=== PATIENT | female | born 1985 | race Caucasian/White ===

== ENCOUNTER → 2016-12-19 | Outpatient (CLI) | payer MEDICAID ==
--- NOTE | 2016-12-19 09:29 | RAD ---
Exam performed: Left breast ultrasound. History: Palpable lump in the left breast. Date of service: 12/19/16. Comparison: None available Discussion: Targeted sonographic evaluation of the left breast is performed in the area of concern. There is a large cyst at 3:00 position measuring 1.2 x 1.4 x 1.1 cm. There is a 0.8 x 0.9 x 0.8 cm cyst at 4:00 position. Contrast from cyst is seen at 3 to 4:00 position, 9 cm from the nipple. These correspond to the area of palpable concern. No suspicious finding is identified. Impression: Several cysts as outlined above correspond to the area of palpable concern. Patient may be followed up clinically. Patient may return at age 34 for baseline mammogram. BI-RADS 2. Benign findings
--- NOTE | 2016-12-19 10:13 | KCIC ---
PROCEDURE Pelvic sonogram. HISTORY Left lower quadrant pain. TECHNIQUE Trans abdominal and transvaginal sonographic imaging of the pelvis was performed. COMPARISON None. FINDINGS The uterus measures 9.4 x 6.6 x 4.6 cm. The endometrium measures 4.6 mm in thickness. The right ovary is surgically absent. The left ovary measures 4.0 x 2.2 x 1.4 cm and demonstrates normal blood flow. There is a 2.1 cm dominant left ovarian follicle/follicular cyst. There are nabothian cysts within the cervix. There is no pelvic free fluid. IMPRESSION 1. 2.1 cm dominant left ovarian follicle/follicular cyst. 2. Surgically absent right ovary. 3. Nabothian cysts within the cervix. Electronically signed by: Sheri Starr (Dec 19, 2016 10:12:42)
== END | disposition home or self-care (01) ==
LOC: KCIC US 07:52
PROVIDERS: ATTEND Obstetrics & Gynecology
DX: N63 Unspecified lump in breast (principal); R10.32 Left lower quadrant pain; N83.02 Follicular cyst of left ovary; N88.8 Other specified noninflammatory disorders of cervix uteri; Z90.721 Acquired absence of ovaries, unilateral
CPT/HCPCS: 76641; 76830; 76856

== ENCOUNTER 2021-03-01 15:35 | Emergency (ER) | payer MEDICAID ==
[~2021-03-01] VITALS: Ht 172.7 cm; Wt 145.0 kg
[2021-03-01] MEDS: IV NORMAL SALINE 1000ML BAG 1,000 ML IV ONE (18:23)
[2021-03-01] MEDS: diphenhydrAMINE 50 MG/ML VIAL IVP ONE (18:25)
[2021-03-01] MEDS: PROCHLORPERAZINE 10 MG/2 ML VIAL. IV ONE (18:26)
[2021-03-01] MEDS: DEXAMETHASONE SOD PHOS 20 MG/5 ML VIAL. IV ONE (18:30)
--- NOTE | 2021-03-01 18:31 | RAD ---
CT HEAD INDICATION: Reason: MIGRAINE, WORST HEADACHE X 1 WEEK / Spl. Instructions: / History: COMPARISON: None Available. Exposure: One or more of the following individualized dose reduction techniques were utilized for thi s examination: 1. Automated exposure control 2. Adjustment of the mA and/or kV according to patient size 3. Use of iterative reconstruction technique TECHNIQUE: 5 mm contiguous axial images were obtained from the skull base to the vertex in both bone and soft tissue algorithm. FINDINGS: No abnormal attenuation within the brain parenchyma. No evidence of acute intracranial hemorrhage. No extra-axial fluid collections. No mass effect or midline shift. Ventricular size is appropriate. Basal cisterns are patent. Jara-white differentiation is preserved.Globes and orbits are within normal limits. Paranasal sinus es and mastoid air cells are clear. IMPRESSION: 1. No acute intracranial findings. 2. Partially visualized lucency identified in the right posterior arch of C1 could be secondary to no nfusion or fracture. Electronically signed by: Channing Brock MD (03/01/2021 6:29 PM) [id number]
--- NOTE | 2021-03-01 19:16 | ED.ADGEN ---
Past Medical History Past Medical History: Anxiety, Bipolar, Depression, Diabetes-Type II, Migraines Past Surgical History: Cholecystectomy, Other Additional Past Surgical Histo: hernia repair, right oopherectomy Smoking Status: Never Smoker Alcohol Use: None General Adult EDM: Chief Complaint: HEADACHE HPI: HPI: Patient is a 35 year old [f__sex] who presents with [] Review of Systems: Review of Systems: Constitutional: Denies fever or chills. [] Eyes: Denies change in visual acuity. [] HENT: Denies nasal congestion or sore throat. [] Respiratory: Denies cough or shortness of breath. [] Cardiovascular: Denies chest pain or edema. [] GI: Denies abdominal pain, nausea, vomiting, bloody stools or diarrhea. [] : Denies dysuria. [] Musculoskeletal: Denies back pain or joint pain. [] Integument: Denies rash. [] Neurologic: Denies headache, focal weakness or sensory changes. [] Endocrine: Denies polyuria or polydipsia. [] Lymphatic: Denies swollen glands. [] Psychiatric: Denies depression or anxiety. [] Current Medications: Current Medications Medications (Trade) Dose Ordered Sig/Migel Start Time Stop Time Status Last Admin Dose Admin Dexamethasone Sodium Phosphate (Decadron) 10 mg 1X ONCE 03/01/21 17:45 03/01/21 17:46 DC 03/01/21 18:30 10 MG Diphenhydramine HCl (Benadryl) 25 mg 1X ONCE 03/01/21 17:45 03/01/21 17:46 DC 03/01/21 18:25 25 MG Prochlorperazine Edisylate (Compazine) 10 mg 1X ONCE 03/01/21 17:45 03/01/21 17:46 DC 03/01/21 18:26 10 MG Sodium Chloride 1,000 ml @ 1,000 mls/hr 1X ONCE 03/01/21 17:45 03/01/21 18:44 DC 03/01/21 18:23 1,000 MLS/HR Allergies: Allergies: Allergies Coded Allergies Type Severity Reaction Last Updated Verified Penicillins Allergy Intermediate rash 03/01/21 Yes latex Allergy Intermediate rash 03/01/21 Yes ondansetron Allergy Intermediate rash 03/01/21 Yes Physical Exam: PE: Constitutional: Well developed, well nourished, no acute distress, non-toxic appearance. [] HENT: Normocephalic, atraumatic, bilateral external ears normal, oropharynx moist, no oral exudates, nose normal. [] Eyes: PERRLA, EOMI, conjunctiva normal, no discharge. [] Neck: Normal range of motion, no tenderness, supple, no stridor. [] Cardiovascular:Heart rate regular rhythm, no murmur [] Lungs & Thorax: Bilateral breath sounds clear to auscultation [] Abdomen: Bowel sounds normal, soft, no tenderness, no masses, no pulsatile masses. [] Skin: Warm, dry, no erythema, no rash. [] Back: No tenderness, no CVA tenderness. [] Extremities: No tenderness, no cyanosis, no clubbing, ROM intact, no edema. [] Neurologic: Alert and oriented X 3, normal motor function, normal sensory function, no focal deficits noted. [] Psychologic: Affect normal, judgement normal, mood normal. [] Current Patient Data: Labs: Laboratory Tests Test 03/01/21 16:52 POC Urine HCG, Qualitative Hcg negative (Negative) Vital Signs: Vital Signs Date Time Temp Pulse Resp B/P (MAP) Pulse Ox O2 Delivery O2 Flow Rate FiO2 03/01/21 18:33 89 20 131/68 (89) 98 Room Air 03/01/21 17:01 98.3 98.3 EKG: EKG: [] Heart Score: C/O Chest Pain: No Risk Scores: Score 0 - 3: 2.5% MACE over next 6 weeks - Discharge Home Score 4 - 6: 20.3% MACE over next 6 weeks - Admit for Clinical Observation Score 7 - 10: 72.7% MACE over next 6 weeks - Early Invasive Strategies Radiology/Procedures: Radiology/Procedures: PROCEDURE: CT HEAD WO CONTRAST CT HEAD INDICATION: Reason: MIGRAINE, WORST HEADACHE X 1 WEEK / Spl. Instructions: / History: COMPARISON: None Available. Exposure: One or more of the following individualized dose reduction techniques were utilized for this examination: 1. Automated exposure control 2. Adjustment of the mA and/or kV according to patient size 3. Use of iterative reconstruction technique TECHNIQUE: 5 mm contiguous axial images were obtained from the skull base to the vertex in both bone and soft tissue algorithm. FINDINGS: No abnormal attenuation within the brain parenchyma. No evidence of acute intracranial hemorrhage. No extra-axial fluid collections. No mass effect or midline shift. Ventricular size is appropriate. Basal cisterns are patent. Jara-white differentiation is preserved.Globes and orbits are within normal limits. Paranasal sinuses and mastoid air cells are clear. IMPRESSION: 1. No acute intracranial findings. 2. Partially visualized lucency identified in the right posterior arch of C1 could be secondary to nonfusion or fracture. Electronically signed by: Channing Brock MD (03/01/2021 6:29 PM) [id number][] Course & Med Decision Making: Course & Med Decision Making Pertinent Labs and Imaging studies reviewed. (See chart for details) [] Dragon Disclaimer: Dragon Disclaimer: This electronic medical record was generated, in whole or in part, using a voice recognition dictation system. Departure Departure Impression: Primary Impression: Headache Disposition: HOME / SELF CARE / HOMELESS Condition: STABLE Referrals: NO PCP (PCP) Patient Instructions: Headache and Allergies Additional Instructions: Fill prescription and take as needed for headache. Follow-up with your primary care doctor in the next 1 to 2 days, return to the ER if symptoms worsen. Scripts Butalb/Acetaminophen/Caffeine ([id number] 50-325-40) 1 Each Tablet 1-2 EACH PO Q4HRS PRN for PAIN MDD 6 tabs for 2 Days, #18 TAB 0 Refills Prov: HEATHER HAYES APRN 03/01/21 Problem Qualifiers Primary Impression: Headache Headache type: unspecified Headache chronicity pattern: unspecified pattern Intractability: not intractable Qualified Codes: R51.9 - Headache, unspecified HEATHER HAYES APRN Mar 01, 2021 19:16
[2021-03-01] MEDS ORDERED: BUTA1TAB23 PO (20:02)
[2021-03-01 20:10] VITALS: BP 155/65
== END 2021-03-01 20:30 | disposition home or self-care (01) ==
LOC: ER 15:35
DX: G43.909 Migraine, unspecified, not intractable, without status migrainosus (principal); F31.9 Bipolar disorder, unspecified; E11.9 Type 2 diabetes mellitus without complications; F41.9 Anxiety disorder, unspecified; Z88.0 Allergy status to penicillin; Z88.5 Allergy status to narcotic agent; Z91.040 Latex allergy status
CPT/HCPCS: 70450; 81025; 96361; 96374; 96375; 99285; J0780; J1100; J1200; J7030

== ENCOUNTER 2021-06-19 15:06 | Emergency (ER) | payer SELFPAY ==
[~2021-06-19] VITALS: Ht 172.7 cm; Wt 155.5 kg
[~2021-06-19 15:06] MED LIST: BUTA1TAB23 PO
--- NOTE | 2021-06-19 22:49 | PHYS DOC ---
Past Medical History Past Medical History: Anxiety, Bipolar, Depression, Diabetes-Type II, Migraines Additional Past Medical Histor: van wildebrand, pulm embolism (JUVENTINO HOLLIS APRN) Past Surgical History: Cholecystectomy, Other Additional Past Surgical Histo: hernia repair, right oopherectomy (JUVENTINO HOLLIS APRN) Smoking Status: Never Smoker Alcohol Use: None (JUVENTINO HOLLIS APRN) General Adult EDM: Chief Complaint: HEADACHE HPI: HPI: Patient is a 35 year old presents to the emergency department complaining of a migraine headache for the past 16 days. Patient denies thunderclap onset, reports onset of her normal migraine headaches, denies any aura, reports she may need a headache cocktail. Patient reports she has taken her Topamax, amitriptyline, Imitrex, [id number]-yjy-tggxums ibuprofen, gdbz-gnb-dvcfelo Naprosyn without any relief. Patient reports she has been nauseated and has vomited every day for the past 16 days along with diarrhea. Patient reports this is normal for her when she has her migraine headaches. Patient reports she recently moved here from [place] stating she no longer has a neurologist or [facility] physician. Patient states she feels like she might need to be admitted for pain control. Patient denies chest pains, shortness of breath, nasal chest congestion. Denies recent fever or chills. Denies loss of taste or loss of smell. Patient denies receiving the Covid virus vaccine stating she just has not had time to receive one. Patient reports an allergy to penicillin, latex, and Zofran. Patient reports her last menstrual cycle was 1 week ago with normal duration of flow. Patient does report that she slipped and fell in the bathroom here at [facility] hitting the back of her head, denies loss of consciousness, complains of neck pain. Denies numbness or tingling to her lower extremities. Patient denies any other physical complaints or physical concerns. (JUVENTINO HOLLIS APRN) Review of Systems: Review of Systems: 14 body systems of review of systems have been reviewed. See HPI for pertinent positives and negative responses, otherwise all other systems are negative, nonpertinent or noncontributory. Constitutional: Negative except as outlined in HPI above. Skin: Negative except as outlined in HPI above. Eyes: Negative except as outlined in HPI above. HENT: Negative except as outlined in HPI above. Respiratory: Negative except as outlined in HPI above. Cardiovascular: Negative except as outlined in HPI above. GI: Negative except as outlined in HPI above. : Negative except as outlined in HPI above. Musculoskeletal: Negative except as outlined in HPI above. Integument: Negative except as outlined in HPI above. Neurologic: Negative except as outlined in HPI above. Endocrine: Negative except as outlined in HPI above. Lymphatic: Negative except as outlined in HPI above. Psychiatric: Negative except as outlined in HPI above. (JUVENTINO HOLLIS APRN) Heart Score: C/O Chest Pain: No Risk Factors: Risk Factors: DM, Current or recent (<one month) smoker, HTN, HLP, family history of CAD, obesity. Risk Scores: Score 0 - 3: 2.5% MACE over next 6 weeks - Discharge Home Score 4 - 6: 20.3% MACE over next 6 weeks - Admit for Clinical Observation Score 7 - 10: 72.7% MACE over next 6 weeks - Early Invasive Strategies (JUVENTINO HOLLIS APRN) C/O Chest Pain: N/A (MICHOACANO GARCIA DO) Current Medications: Current Medications Medications (Trade) Dose Ordered Sig/Migel Start Time Stop Time Status Last Admin Dose Admin Dexamethasone Sodium Phosphate (Decadron) 10 mg 1X ONCE 06/19/21 22:30 06/19/21 22:31 Diphenhydramine HCl (Benadryl) 50 mg 1X ONCE 06/19/21 22:30 06/19/21 22:31 Ketorolac Tromethamine (Toradol 30mg Vial) 30 mg 1X ONCE 06/19/21 22:30 06/19/21 22:31 Metoclopramide HCl (Reglan Vial) 10 mg 1X ONCE 06/19/21 22:30 06/19/21 22:31 Sodium Chloride 1,000 ml @ 1,000 mls/hr 1X ONCE 06/19/21 22:30 06/19/21 23:29 (JUVENTINO HOLLIS APRN) Allergies: Allergies: Allergies Coded Allergies Type Severity Reaction Last Updated Verified Penicillins Allergy Intermediate rash 03/01/21 Yes latex Allergy Intermediate rash 03/01/21 Yes ondansetron Allergy Intermediate rash 03/01/21 Yes (JUVENTINO HOLLIS APRN) Physical Exam: PE: Constitutional: Well developed, well nourished, no acute distress, non-toxic appearance. 35-year-old female in no apparent distress. Patient had complained of neck pain from slip and fall at triage, has [place] collar in place. HENT: Normocephalic, atraumatic. No contusion appreciated to scalp where patient reports hitting the back of her head. Eyes: Conjunctiva normal, no discharge. Photophobic. Neck: Normal range of motion, no stridor. Maintaining C-spine precautions, [place] collar removed, pain to palpation along C-spine, no step-offs, no deformities, no areas of ecchymosis or swelling, [place] collar replaced. Cardiovascular: No cyanosis appreciated, distal cap refill less than 2 seconds. Lungs & Thorax: Patient is in no respiratory distress, no audible adventitious lung sounds appreciated. Abdomen: Nontender, no abnormalities noted. Skin: Warm, dry, no erythema, no rash. Back: No tenderness, no deformities. Extremities: No tenderness, no cyanosis, no clubbing, ROM intact, no edema. Neurologic: Alert and oriented X 3, normal motor function, normal sensory function, no focal deficits noted. Psychologic: Affect normal, judgement normal, mood normal. (JUVENTINO HOLLIS APRN) Current Patient Data: Vital Signs: Vital Signs Date Time Temp Pulse Resp B/P (MAP) Pulse Ox O2 Delivery O2 Flow Rate FiO2 06/19/21 19:10 97.8 88 20 133/89 (95) 99 Room Air 97.8 (JUVENTINO HOLLIS APRN) Labs: Laboratory Tests Test 06/20/21 00:02 06/20/21 00:13 SARS-CoV-2 Antigen (Rapid) Negative White Blood Count 5.6 x10^3/uL Red Blood Count 3.16 x10^6/uL Hemoglobin 10.4 g/dL Hematocrit 30.3 % Mean Corpuscular Volume 96 fL Mean Corpuscular Hemoglobin 33 pg Mean Corpuscular Hemoglobin Concent 35 g/dL Red Cell Distribution Width 13.5 % Platelet Count 174 x10^3/uL Neutrophils (%) (Auto) 64 % Lymphocytes (%) (Auto) 27 % Monocytes (%) (Auto) 7 % Eosinophils (%) (Auto) 3 % Basophils (%) (Auto) 0 % Neutrophils # (Auto) 3.6 x10^3/uL Lymphocytes # (Auto) 1.5 x10^3/uL Monocytes # (Auto) 0.4 x10^3/uL Eosinophils # (Auto) 0.2 x10^3/uL Basophils # (Auto) 0.0 x10^3/uL Sodium Level 139 mmol/L Potassium Level 3.7 mmol/L Chloride Level 106 mmol/L Carbon Dioxide Level 27 mmol/L Anion Gap 6 Blood Urea Nitrogen 14 mg/dL Creatinine 0.9 mg/dL Estimated GFR (Cockcroft-Gault) 70.5 Glucose Level 85 mg/dL Calcium Level 8.8 mg/dL Current Medications Medications (Trade) Dose Ordered Sig/Migel Route PRN Reason Start Time Stop Time Status Last Admin Dose Admin Sodium Chloride 1,000 ml @ 1,000 mls/hr 1X ONCE IV 06/19/21 22:30 06/19/21 23:29 DC 06/20/21 02:11 Diphenhydramine HCl (Benadryl) 50 mg 1X ONCE IVP 06/19/21 22:30 06/19/21 22:31 DC 06/20/21 02:07 Metoclopramide HCl (Reglan Vial) 10 mg 1X ONCE IVP 06/19/21 22:30 06/19/21 22:31 DC 06/20/21 02:11 Ketorolac Tromethamine (Toradol 30mg Vial) 30 mg 1X ONCE IVP 06/19/21 22:30 06/19/21 22:31 DC 06/20/21 02:07 Dexamethasone Sodium Phosphate (Decadron) 10 mg 1X ONCE IV 06/19/21 22:30 06/19/21 22:31 DC 06/20/21 02:09 Morphine Sulfate (Morphine Sulfate) 4 mg 1X ONCE IVP 06/20/21 03:00 06/20/21 03:01 (MICHOACANO GARCIA DO) EKG: EKG: [] (JUVENTINO HOLLIS APRN) Radiology/Procedures: Radiology/Procedures: [] (JUVENTINO HOLLIS APRN) Radiology/Procedures: [facility] [address] [place], [place] [id number] IMAGING REPORT Signed PATIENT: TEETEE ETIENNE ACCOUNT: [id number] : 1985 LOCATION: ER AGE: 35 SEX: F EXAM STATUS: REG ER ORD. PHYSICIAN: JUVENTINO HOLLIS APRN REASON: Blunt head trauma from fall, migraine headache PROCEDURE: CT HEAD AND CERVICAL SPINE WO EXAM: 1. CT HEAD WITHOUT CONTRAST. 2. CT CERVICAL SPINE WITHOUT CONTRAST. HISTORY: Head injury, headache. TECHNIQUE: Computed tomography of the head and cervical spine was performed without intravenous contrast. One or more of the following individualized dose reduction techniques were utilized for this examination: 1. Automated exposure control. 2. Adjustment of the mA and/or kV according to patient size. 3. Use of iterative reconstruction technique. COMPARISON: 03/01/2021. FINDINGS: There is no intracranial hemorrhage. Jara-white differentiation is preserved. The ventricles are normal in size and position. The visualized paranasal sinuses appear clear. The orbits are unremarkable. The temporal bones are unremarkable. The calvarium reveals no suspicious lesions. Alignment is maintained. The craniocervical junction is unremarkable. No fractures are identified. Intervertebral disc heights are maintained. There is no prevertebral soft tissue swelling. 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 There is no central canal stenosis or neural foraminal stenosis. IMPRESSION: 1. No acute intracranial findings. 2. No cervical fracture or malalignment. Electronically signed by: Kameron Hendricks MD (06/20/2021 12:56 AM) [facility] DICTATED and SIGNED BY: VICK HENDRICKS MD DATE: 06/20/21 [id number] (MICHOACANO GARCIA DO) Course & Med Decision Making: Course & Med Decision Making Pertinent Labs and Imaging studies reviewed. (See chart for details) 35-year-old female, vital signs reviewed, presents to the emergency department concerning migraine headache for the past 16 days. Patient does report a normal onset of her migraine headache, stating this is not the worst headache of her life. However patient does report falling and hitting the back of her head in the bathroom here at [facility], physical examination nonconcerning, no areas of contusion of the scalp appreciated. Patient does have [place] collar in place, will order CT head and C-spine to rule out acute fracture. Will order IV headache cocktail. Urinalysis assay. Patient does complain of nausea vomiting and diarrhea for the past 16 days, however patient's presentation and vital signs do not support this claim. Will order Covid testing related to complaint. After period of time will reevaluate for pain control. At 2315 in the shift report given to ED attending physician Dr. Garcia, Dr. Moore has assumed patient care at this time. (JUVENTINO HOLLIS APRN) Course & Med Decision Making Patient is a 36-year-old female who present to ER due to headache. Patient fell and hit her head while she was in the toilet while she was in the waiting room. The scan her head and C-spine did not show any acute problem. Her lab work came back normal. Patient was tested negative for COVID-19. Patient will be discharged home with prescription for some Fioricet, she will need to follow- up with a neurologist for outpatient evaluation and treatment. (MICHOACANO GARCIA DO) Dragon Disclaimer: Dragon Disclaimer: This electronic medical record was generated, in whole or in part, using a voice recognition dictation system. (JUVENTINO HOLLIS APRN) Departure Departure Impression: Primary Impression: Headache Additional Impression: Head injury Disposition: HOME / SELF CARE / HOMELESS Condition: IMPROVED Referrals: NO PCP (PCP) Please follow up with [facility] this week. [address], [address] [place] [address] Phone number: [phone] DARSHAN MARIEE MD Please call this neurologist for outpatient follow up. Patient Instructions: General Headache Without Cause Additional Instructions: Thank you for visiting our Emergency Department. We appreciate you trusting us with your care. If any additional problems come up don't hesitate to return to visit us. Please follow up with your primary care provider so they can plan additional care if needed and know about the problem that you had. If symptoms worsen come back to the Emergency Department. Any concerning symptoms that start such as chest pain, shortness of air, weakness or numbness on one side of the body, running high fevers or any other concerning symptoms return to the ER. Scripts Butalb/Acetaminophen/Caffeine (ESGIC 50-325-40 MG TABLET) 1 Each Tablet 1 TAB PO Q4-6HRS PRN for HEADACHE for 4 Days, #20 TAB 0 Refills Prov: MICHOACANO GARCIA DO 06/20/21 JUVENTINO HOLLIS SCREED PERSON Jun 19, 2021 22:49 MICHOACANO GARCIA DO Jun 20, 2021 02:23
[2021-06-20 00:20] LABS: BASO % 0 % (0-3); EOS # 0.2 x10^3/uL (0.0-0.7); EOS % 3 % (0-3); HEMATOCRIT 30.3 % (36.0-47.0); HEMOGLOBIN 10.4 g/dL (12.0-15.5); LYMPH # 1.5 x10^3/uL (1.0-4.8); LYMPH % 27 % (24-48); MEAN CORPUSCULAR HEMOGLOBIN 33 pg (25-35); MEAN CORPUSCULAR HGB CONC 35 g/dL (31-37); MEAN CORPUSCULAR VOLUME 96 fL (79-100); MONO # 0.4 x10^3/uL (0.0-1.1); MONO % 7 % (0-9); NEUT # 3.6 x10^3/uL (1.8-7.7); NEUT % 64 % (31-73); PLATELET COUNT 174 x10^3/uL (140-400); RED BLOOD COUNT 3.16 x10^6/uL (3.50-5.40); RED CELL DISTRIBUTION WIDTH 13.5 % (11.5-14.5); WHITE BLOOD COUNT 5.6 x10^3/uL (4.0-11.0)
[2021-06-20 00:28] LABS: CALCIUM 8.8 mg/dL (8.5-10.1); CREATININE 0.9 mg/dL (0.6-1.0); GFR 70.5; POTASSIUM 3.7 mmol/L (3.5-5.1)
--- NOTE | 2021-06-20 00:58 | RAD ---
EXAM: 1. CT HEAD WITHOUT CONTRAST. 2. CT CERVICAL SPINE WITHOUT CONTRAST. HISTORY: Head injury, headache. TECHNIQUE: Computed tomography of the head and cervical spine was performed without intravenous contr ast. One or more of the following individualized dose reduction techniques were utilized for this exa mination: 1. Automated exposure control. 2. Adjustment of the mA and/or kV according to patient size. 3. Use of iterative reconstruction technique. COMPARISON: 03/01/2021. FINDINGS: There is no intracranial hemorrhage. Jara-white differentiation is preserved. The ventricl es are normal in size and position. The visualized paranasal sinuses appear clear. The orbits are unremarkable. The temporal bones are un remarkable. The calvarium reveals no suspicious lesions. Alignment is maintained. The craniocervical junction is unremarkable. No fractures are identified. In tervertebral disc heights are maintained. There is no prevertebral soft tissue swelling. 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 There i s no central canal stenosis or neural foraminal stenosis. IMPRESSION: 1. No acute intracranial findings. 2. No cervical fracture or malalignment. Electronically signed by: Kameron Hendricks MD (06/20/2021 12:56 AM) [facility]
[2021-06-20] MEDS: DEXAMETHASONE SOD PHOS 20 MG/5 ML VIAL. IV ONE ×2 (01:25→02:09)
[2021-06-20] MEDS: KETOROLAC 30 MG/ML VIAL. IVP ONE ×2 (01:26→02:07)
[2021-06-20] MEDS: diphenhydrAMINE 50 MG/ML VIAL IVP ONE ×2 (01:26→02:07)
[2021-06-20] MEDS: METOCLOPRAMIDE HCL 10 MG/2 ML VIAL. IVP ONE ×2 (01:27→02:11)
[2021-06-20] MEDS: IV NORMAL SALINE 1000ML BAG 1,000 ML IV ONE ×2 (01:28→02:11)
[2021-06-20] MEDS ORDERED: BUTA-153 PO (02:23)
[2021-06-20] MEDS ORDERED: MORPHINE SULFATE 4 MG/ML INJ. IVP ONE (03:00)
[2021-06-20] MEDS ORDERED: fentaNYL PF VIAL 100 MCG/2 ML VIAL IVP ONE (03:30)
[2021-06-20 04:20] VITALS: BP 121/65
--- NOTE | 2021-06-21 12:12 | NUR ---
IP: Attempted to contact pt concerning covid results. No answer, left a voicemail to return the call.
== END 2021-06-20 04:40 | disposition home or self-care (01) ==
LOC: ER 15:06
DX: S09.90XA Unspecified injury of head, initial encounter (principal); Z20.822 Contact with and (suspected) exposure to COVID-19; G43.909 Migraine, unspecified, not intractable, without status migrainosus; M54.2 Cervicalgia; F31.9 Bipolar disorder, unspecified; E11.9 Type 2 diabetes mellitus without complications; Z88.0 Allergy status to penicillin; Z91.040 Latex allergy status; Z88.5 Allergy status to narcotic agent; W01.198A Fall on same level from slipping, tripping and stumbling with subsequent striking against other object, initial encounter; Y93.89 Activity, other specified; Y92.231 Patient bathroom in hospital as the place of occurrence of the external cause; Y99.8 Other external cause status
CPT/HCPCS: 36415; 70450; 72125; 80048; 85025; 87426; 96361; 96374; 96375; 99285; J1100; J1200; J1885; J2270; J2765; J3010; J7030; U0003; U0005

== ENCOUNTER 2021-06-23 09:33 | Emergency (ER) | payer SELFPAY ==
[~2021-06-23] VITALS: Ht 172.7 cm; Wt 150.0 kg
[~2021-06-23 09:33] MED LIST changes: +BUTA-153 PO
[2021-06-23 10:05] VITALS: BP 141/65
--- NOTE | 2021-06-23 10:46 | PHYS DOC ---
Past Medical History Past Medical History: Anxiety, Bipolar, Depression, Diabetes-Type II, Migraines Additional Past Medical Histor: TIM OZUNA (JENARO ROBLEDO Kathia DAY GUARD) Past Surgical History: Cholecystectomy, Oophorectomy Additional Past Surgical Histo: HERNIA REPAIR (JENARO ROBLEDO DAY GUARD) Smoking Status: Never Smoker Alcohol Use: Rarely (JENARO ROBLEDO Kathia DAY GUARD) General Adult EDM: Chief Complaint: HEADACHE HPI: HPI: Patient is a 36 year old female with history of migraine headaches, anxiety, depression, bipolar, who presents the ED today complaining of 9 out of 10 generalized migraine headache. Patient states symptoms have been going on for 19 days. She states she has been seen at multiple hospitals including this hospital a couple days ago. She was seen at [facility] on Sunday, got admitted and discharged yesterday after having a lumbar puncture. She states she has been vomiting and having more headaches since she was discharged from [facility]. Patient denies any fever. Denies anything specifically relieving the headache but states she has light sensitivity. She states she normally takes Topamax and Imitrex. She is currently out of Imitrex. (JENARO ROBLEDO Kathia DAY GUARD) Review of Systems: Review of Systems: Constitutional: Denies fever or chills. [] Eyes: Denies change in visual acuity. [] HENT: Denies nasal congestion or sore throat. [] Respiratory: Denies cough or shortness of breath. [] Cardiovascular: Denies chest pain or edema. [] GI: Reports nausea and vomiting. Denies abdominal pain, bloody stools or diarrhea. [] : Denies dysuria. [] Musculoskeletal: Denies back pain or joint pain. [] Integument: Denies rash. [] Neurologic: Reports headache, denies focal weakness or sensory changes. [] Endocrine: Denies polyuria or polydipsia. [] Lymphatic: Denies swollen glands. [] Psychiatric: Denies depression or anxiety. [] (JENARO ROBLEDO Kathia DAY GUARD) Heart Score: C/O Chest Pain: N/A Risk Factors: Risk Factors: DM, Current or recent (<one month) smoker, HTN, HLP, family his tory of CAD, obesity. Risk Scores: Score 0 - 3: 2.5% MACE over next 6 weeks - Discharge Home Score 4 - 6: 20.3% MACE over next 6 weeks - Admit for Clinical Observation Score 7 - 10: 72.7% MACE over next 6 weeks - Early Invasive Strategies (JENARO ROBLEDO DAY GUARD) Allergies: Allergies: Allergies Coded Allergies Type Severity Reaction Last Updated Verified Penicillins Allergy Intermediate rash 03/01/21 Yes latex Allergy Intermediate rash 03/01/21 Yes ondansetron Allergy Intermediate rash 03/01/21 Yes (JENARO ROBLEDO DAY GUARD) Physical Exam: PE: Constitutional: Well developed, well nourished, no acute distress, non-toxic appearance. [] HENT: Normocephalic, atraumatic, bilateral external ears normal, oropharynx moist, no oral exudates, nose normal. [] Eyes: PERRLA, EOMI, conjunctiva normal, no discharge. [] Neck: Normal range of motion, no tenderness, supple, no stridor. [] Cardiovascular:Heart rate regular rhythm, no murmur [] Lungs & Thorax: Bilateral breath sounds clear to auscultation [] Abdomen: Bowel sounds normal, soft, no tenderness, no masses, no pulsatile masses. [] Skin: Warm, dry, no erythema, no rash. [] Back: No tenderness, no CVA tenderness. [] Extremities: No tenderness, no cyanosis, no clubbing, ROM intact, no edema. [] Neurologic: Alert and oriented X 3, normal motor function, normal sensory function, no focal deficits noted. Cranial nerves II through XII intact Psychologic: Affect normal, judgement normal, mood normal. [] (JENARO ROBLEDO DAY GUARD) Current Patient Data: Vital Signs: Vital Signs Date Time Temp Pulse Resp B/P (MAP) Pulse Ox O2 Delivery O2 Flow Rate FiO2 06/23/21 10:05 98.2 90 18 141/65 97 Room Air 98.2 (JENARO ROBLEDO DAY GUARD) EKG: EKG: [] (JENARO ROBLEDO DAY GUARD) Radiology/Procedures: Radiology/Procedures: [] (JENARO ROBLEDO DAY GUARD) Course & Med Decision Making: Course & Med Decision Making Pertinent Labs and Imaging studies reviewed. (See chart for details) This is a 36-year-old female patient presenting to the ED today complaining of migraine headache with nausea and vomiting. See HPI. Patient had a lumbar puncture done yesterday at [facility]. She states she has been vomiting and having headaches since she was discharged. 1041 anesthesiologist in the room talking to patient. He states patient has history of von Willebrand disease and recommended patient to go home, try and stay supine as possible and push fluids. Discharge home. Encouraged to also follow-up with a neurologist. (JENARO ROBLEDO APRN) Course & Med Decision Making I was not personally involved in the care of this patient while in the Emergency Department. I was immediately available to our staff YOANNA. Pb Moore MD (PB MOORE MD) Dragon Disclaimer: Dragon Disclaimer: This electronic medical record was generated, in whole or in part, using a voice recognition dictation system. (JENARO ROBLEDO APRN) Departure Departure Impression: Primary Impression: Migraine headache Qualified Codes: G43.909 - Migraine, unspecified, not intractable, without status migrainosus Disposition: 01 HOME / SELF CARE / HOMELESS Condition: STABLE Referrals: NO PCP (PCP) follow up in one week Patient Instructions: Migraine Headache Additional Instructions: You were evaluated in the emergency room for a migraine headache. We highly recommend you go home, stay supine as possible, push fluids. Please follow-up with your neurologist. Scripts Prochlorperazine Maleate (Compazine) 10 Mg Tablet 1 TAB PO Q6HRS for 7 Days, #28 TAB 0 Refills Prov: JENARO ROBLEDO APRN 06/23/21 Sumatriptan Succinate (IMITREX) 50 Mg Tablet 1 TAB PO UD, #9 TAB 1 Refill Take 1 tablet at the onset of headache, repeat in 2 hours if the headache continues. Do not take more than 2 tablets in 24 hours Prov: JENARO ROBLEDO APRN 06/23/21 JENARO ROBLEDO APRN Jun 23, 2021 10:46 PB MOORE MD Jun 23, 2021 12:20
[2021-06-23] MEDS ORDERED: SUMA50TA3 PO (11:00)
[2021-06-23] MEDS ORDERED: PROC10TA57 PO (11:02)
[2021-06-23] MEDS ORDERED: PROMETHAZINE 12.5 MG TABLET. PO ONE (11:15)
== END 2021-06-23 11:19 | disposition home or self-care (01) ==
LOC: ER 09:33
DX: G43.909 Migraine, unspecified, not intractable, without status migrainosus (principal); E11.9 Type 2 diabetes mellitus without complications; F31.9 Bipolar disorder, unspecified; Z88.0 Allergy status to penicillin; Z91.040 Latex allergy status; Z88.5 Allergy status to narcotic agent
CPT/HCPCS: 99284; Q0169

== ENCOUNTER 2021-06-25 19:16 | Emergency (ER) | payer SELFPAY ==
[~2021-06-25] VITALS: Ht 172.7 cm; Wt 154.6 kg
[~2021-06-25 19:16] MED LIST changes: +PROC10TA57 PO; +SUMA50TA3 PO
[2021-06-25 19:50] VITALS: BP 132/72
[2021-06-26] MEDS ORDERED: KETOROLAC 15 MG/ML VIAL. IVP ONE (00:15)
[2021-06-26] MEDS ORDERED: IV NORMAL SALINE 1000ML BAG 1,000 ML IV ONE (00:15)
[2021-06-26] MEDS ORDERED: METOCLOPRAMIDE HCL 10 MG/2 ML VIAL. IVP ONE (00:15)
--- NOTE | 2021-06-26 00:52 | PHYS DOC ---
Past Medical History Past Medical History: Anxiety, Bipolar, Depression, Diabetes-Type II, Migraines Additional Past Medical Histor: TIM OZUNA Past Surgical History: Cholecystectomy, Oophorectomy Additional Past Surgical Histo: HERNIA REPAIR Smoking Status: Never Smoker Alcohol Use: Rarely General Adult EDM: Chief Complaint: HEADACHE Problems: (1) Headache HPI: HPI: Patient is a 36 year old female with a history of chronic migraine headaches presenting with an acute on chronic migraine headache for the past 19 days. She denies any sudden onset of the headache, trauma surgery with a headache. She reports her headache is on both sides of her head, associated with some photophobia and phonophobia. The patient denies nausea, vomiting, fever, chills, chest pain, shortness of breath, abdominal pain, urinary symptoms, cough, recent trauma, or any other complaints. Review of Systems: Review of Systems: ROS is otherwise negative except for as documented in HPI Heart Score: C/O Chest Pain: No Current Medications: Current Medications Medications (Trade) Dose Ordered Sig/Migel Start Time Stop Time Status Last Admin Dose Admin Ketorolac Tromethamine (Toradol 15mg Vial) 15 mg 1X ONCE 06/26/21 00:15 06/26/21 00:16 DC Metoclopramide HCl (Reglan Vial) 10 mg 1X ONCE 06/26/21 00:15 06/26/21 00:16 DC 06/26/21 00:43 10 MG Sodium Chloride 1,000 ml @ 1,000 mls/hr 1X ONCE 06/26/21 00:15 06/26/21 01:14 06/26/21 00:43 1,000 MLS/HR Allergies: Allergies: Allergies Coded Allergies Type Severity Reaction Last Updated Verified Penicillins Allergy Intermediate rash 03/01/21 Yes latex Allergy Intermediate rash 03/01/21 Yes ondansetron Allergy Intermediate rash 03/01/21 Yes Physical Exam: PE: Constitutional: No acute distress, non-toxic appearance. HENT: Atraumatic, bilateral external ears normal, nose normal. No temporal tenderness Eyes: PERRLA, EOMI, conjunctiva normal, no discharge. Neck: Normal range of motion, supple, no stridor. Cardiovascular: Heart rate regular rhythm. 2+ radial pulses Lungs & Thorax: No respiratory distress, symmetrical expansion. Bilateral breath sounds clear to auscultation Abdomen: Soft, no tenderness Skin: Warm, dry. Extremities: No tenderness, no cyanosis, ROM intact, no edema. Neurologic: Alert and oriented X 3, normal motor function, normal sensory function, no focal deficits noted. Non ataxic gait. GCS 15. Psychologic: Affect normal, judgment normal, mood normal. Current Patient Data: Labs: Laboratory Tests Test 06/25/21 21:17 POC Urine HCG, Qualitative Hcg negative (Negative) Vital Signs: Vital Signs Date Time Temp Pulse Resp B/P (MAP) Pulse Ox O2 Delivery O2 Flow Rate FiO2 06/25/21 19:50 99.0 106 16 132/72 (95) 98 Room Air 99.0 Course & Med Decision Making: Course & Med Decision Making Patient was given migraine cocktail with improvement in headache. There is no red flag component to her headache today, she complains that it is a chronic migraine headache. She has had headache for 19 days. Neuro exam is unrem arkable Departure Departure Impression: Primary Impression: Migraine headache Disposition: HOME / SELF CARE / HOMELESS Condition: IMPROVED Referrals: NO PCP (PCP) Patient Instructions: General Headache Without Cause, [id number] Additional Instructions: You were seen in the Emergency Department for headache. Please drink plenty of fluids -- at least 6-8 glasses of water per day. Dehydration can often precipitate headaches. Avoid alcohol and sugary or caffeinated beverages. Return to the Emergency Department, day or night, if you develop recurrent or worsening headache, vision changes, difficulty eating or drinking due to nausea or vomiting, weakness or numbness in the limbs, difficulty walking or fever. DONALD ANDRES DO Jun 26, 2021 00:52
[2021-06-26] MEDS ORDERED: diphenhydrAMINE 50 MG/ML VIAL IVP ONE (02:00)
[2021-06-26] MEDS ORDERED: PROCHLORPERAZINE 10 MG/2 ML VIAL. IV ONE (02:00)
== END 2021-06-26 02:14 | disposition home or self-care (01) ==
LOC: ER 19:16
DX: G43.909 Migraine, unspecified, not intractable, without status migrainosus (principal); E11.9 Type 2 diabetes mellitus without complications; F41.9 Anxiety disorder, unspecified; F31.9 Bipolar disorder, unspecified; Z88.0 Allergy status to penicillin; Z91.040 Latex allergy status; Z88.8 Allergy status to other drugs, medicaments and biological substances
CPT/HCPCS: 81025; 96361; 96374; 96375; 99284; J0780; J1200; J1885; J2765; J7030